=== PATIENT | female | born 1995 | race Caucasian/White ===

== ENCOUNTER 2021-02-24 06:54 | Day surgery (SDC) | payer MEDICAID ==
[2021-02-17 12:30] LABS: BASOPHILS % (AUTO) 0.4 % (0-1); EOSINOPHILS # (AUTO) 0.2 X10'3 (0-0.9); EOSINOPHILS % (AUTO) 3.2 % (0-6); LYMPHOCYTES # (AUTO) 2.1 X10'3 (1.1-4.8); LYMPHOCYTES % (AUTO) 27.6 % (21-51); MEAN CORPUSCULAR HEMOGLOBIN 29.7 PG (27.0-31.0); MEAN CORPUSCULAR HGB CONC 35.1 g/dL (33.0-36.5); MEAN CORPUSCULAR VOLUME 84.6 FL (78-98); MEAN PLATELET VOLUME 8.2 FL (7.4-10.4); MONOCYTES # (AUTO) 0.5 X10'3 (0-0.9); MONOCYTES % (AUTO) 6.5 % (2-12); NEUTROPHILS # (AUTO) 4.7 X10'3 (1.8-7.7); NEUTROPHILS % (AUTO) 62.3 % (42-75); PRE OP HEMATOCRIT 44.1 % (35.0-45.0); PRE OP HEMOGLOBIN 15.4 g/dL (12.0-16.0); PRE OP PLATELET COUNT 308 X10'3 (140-440); RED BLOOD COUNT 5.21 X10'6 (4.20-5.60); RED CELL DISTRIBUTION WIDTH 12.4 % (11.5-14.5)
[2021-02-17 12:44] LABS: PRE OP INR 1.1 INR; PRE OP PROTIME 11.4 SECONDS (9.0-12.0)
[2021-02-17 12:47] LABS: ALBUMIN 4.4 G/DL (3.4-5.0); ALBUMIN/GLOBULIN RATIO 1.3 (1.1-1.5); ALKALINE PHOSPHATASE 80 IU/L (46-116); BLOOD UREA NITROGEN 13 MG/DL (7-18); BUN/CREATININE RATIO 16.7 (6.6-38.0); CALCIUM 9.3 MG/DL (8.5-10.1); CHLORIDE 106 MMOL/L (99-107); CREATININE 0.78 MG/DL (0.40-0.90); PRE OP ALT 8 U/L (30-65); PRE OP ANION GAP 11 (8-16); PRE OP AST 15 U/L (10-37); PRE OP BILIRUB, TOTAL 0.9 MG/DL (0.0-1.0); PRE OP GLUCOSE 92 MG/DL (70-104); PRE OP POTASSIUM 3.8 MMOL/L (3.4-5.1); PRE OP SODIUM 141 MMOL/L (135-145); TOTAL CARBON DIOXIDE 24.3 MMOL/L (24-32); TOTAL PROTEIN 7.9 G/DL (6.4-8.2); eGFR 89 ML/MIN
[2021-02-17 12:51] LABS: CLARITY,URINE SLIGHTLY CLOUDY (Clear); COLOR,URINE YELLOW (Yellow); GLUCOSE, URINE NEGATIVE (Neg); KETONES,URINE NEGATIVE (Neg); LEUKOCYTE ESTERASE ,URINE NEGATIVE (Neg); NITRITES, URINE NEGATIVE (Neg); OCCULT BLOOD,URINE NEGATIVE (Neg); PH,URINE 5.5 (4.8-8.0); PROTEIN,URINE NEGATIVE (Neg); UROBILINOGEN,URINE 0.2 E.U/dL (0.2-1.0)
[2021-02-17 12:54] LABS: UA COLLECTION TYPE CLN CATCH MIDSTREAM
[2021-02-17 12:56] LABS: MUCUS STRANDS MANY /LPF (Neg); SQUAMOUS EPITHELIAL CELL,UR MANY /LPF (FEW)
[2021-02-17 12:57] LABS: TRANSITIONAL EPI CELLS,URINE FEW /HPF; WBC,URINE 0-4 /HPF (0-4)
[2021-02-17 12:58] LABS: BACTERIA,URINE 1+ /HPF (Neg); RBC,URINE NONE SEEN /HPF (0-2)
[2021-02-17 12:58] LABS: HCG SERUM QL NEGATIVE
[~2021-02-24] VITALS: Ht 172.7 cm; Wt 92.4 kg
[2021-02-24] VITALS (9 sets, daily range): BP systolic 113–144; BP diastolic 68–94
[~2021-02-24 06:54] MED LIST: ALBU8HFA INH; CHOL100046 PO; FLUT16SP IH; GABA300C PO; HYDR-3965 PO; HYDR50CA5 PO; INDO50CA96 PO; LORA10TA7 PO; ONDA4TAB12 PO; ceFOXitin 2GM-NS 100mL ADDvant 100 ML IV ONE; famotidine 20mg tablet PO ONE; ringers solution, lacted 1,000 ML IV SCH
[2021-02-24] MEDS ORDERED: proCHLORperazine 10 MG/2 ml inj IV PRN (08:05)
[2021-02-24] MEDS ORDERED: meperidine/PF 25mg/ml syringe IV PRN ×3 (08:05)
[2021-02-24] MEDS ORDERED: morphine 4 MG/ML inj SYRINge IV PRN (08:05)
[2021-02-24] MEDS ORDERED: ondansetron/PF 4mg/2ml inj IV PRN (08:05)
[2021-02-24] MEDS ORDERED: ringers solution, lacted 1,000 ML IV SCH (08:05)
[2021-02-24] MEDS ORDERED: morphine 2 MG/ML inj. syringe IV PRN (08:05)
[2021-02-24] MEDS ORDERED: BUPIVAcaine/PF 2.5 mg/ml (0.25%) 30ml vial ONE (08:18)
[2021-02-24] MEDS ORDERED: midazolam 1 mg/ML 2ml injection ONE ×2 (08:20→08:33)
[2021-02-24] MEDS ORDERED: dexamethasone sod phosphate 10mg/ml inj ONE (08:32)
[2021-02-24] MEDS ORDERED: sevoflurane 250ml liquid IH ONE (08:32)
[2021-02-24] MEDS ORDERED: rocuronium 10mg/ml inj IV ONE (08:33)
[2021-02-24] MEDS ORDERED: fentaNYL /PF 50mcg/ml 5ml ampule ONE (08:33)
[2021-02-24] MEDS ORDERED: propofol inj 20 ML IV ONE (08:33)
[2021-02-24] MEDS ORDERED: ondansetron/PF 4mg/2ml inj ONE (09:40)
[2021-02-24] MEDS ORDERED: neostigmine methylsulfate 1 MG/ML 10ml vial ONE (09:42)
[2021-02-24] MEDS ORDERED: glycopyrrolate 0.2mg/ml inj ONE (09:42)
--- NOTE | 2021-02-24 09:54 | NUR ---
Received from OR via TOM, accompanied by Anesthesiologist DR ARREOLA and report given by Anesthesiologist. PT DROWSY, ABDOMEN W/3 LAP SITES CDI. BLANKET WARMER APPLIED FOR TEMP OF 35.7. Addendum: 02/24/21 at 1010 by Karolina Peñaloza RN Amended: Links added.
--- NOTE | 2021-02-24 11:14 | NUR ---
PT UP AND ABLE TO AMBULATE SAFELY, PAIN TOLERABLE, D/C INSTRUCTIONS GIVEN AND GONE OVER W/PT WHO VERBALIZED UNDERSTANDING. PT D/CD TO HOME VIA W/C TO PRIVATE VEHICLE W/O INCIDENT. Addendum: 02/24/21 at 1133 by Karolina Peñaloza RN Amended: Links added.
== END 2021-02-24 11:14 | disposition home or self-care (01) ==
LOC: PAS 06:54 → EDBD 08:45 → PAS 11:14
PROVIDERS: ATTEND Obstetrics & Gynecology
DX: R10.2 Pelvic and perineal pain (principal); R19.09 Other intra-abdominal and pelvic swelling, mass and lump; N83.8 Other noninflammatory disorders of ovary, fallopian tube and broad ligament; J45.909 Unspecified asthma, uncomplicated; G43.909 Migraine, unspecified, not intractable, without status migrainosus; F32.9 Major depressive disorder, single episode, unspecified; F41.9 Anxiety disorder, unspecified; F25.9 Schizoaffective disorder, unspecified; F43.10 Post-traumatic stress disorder, unspecified; E66.9 Obesity, unspecified; Z68.31 Body mass index [BMI] 31.0-31.9, adult; Z86.14 Personal history of Methicillin resistant Staphylococcus aureus infection; Z20.822 Contact with and (suspected) exposure to COVID-19; Z79.899 Other long term (current) drug therapy; Z98.890 Other specified postprocedural states; Z87.891 Personal history of nicotine dependence
CPT/HCPCS: 36415; 58662; 80053; 81001; 82948; 84703; 85025; 85610; 85730; 86885; 86900; 86901; C1758; J0694; J2175; J2250; J2405; J2704; J2710; J3010; J3490; J7120; U0003; U0005; A4618; A7000; J1100

== ENCOUNTER 2022-12-29 09:37 | Outpatient (CLI) | payer MEDICAID ==
[2022-12-29] VITALS (21 sets, daily range): BP systolic 95–159; BP diastolic 33–106
[~2022-12-29 09:37] MED LIST changes: -ceFOXitin 2GM-NS 100mL ADDvant 100 ML IV ONE; -famotidine 20mg tablet PO ONE; -ringers solution, lacted 1,000 ML IV SCH
== END 2022-12-29 23:59 | disposition home or self-care (01) ==
LOC: RAD 09:37
PROVIDERS: ATTEND Physician Assistant Medical
DX: R42 Dizziness and giddiness (principal); R55 Syncope and collapse
CPT/HCPCS: 93660

== ENCOUNTER 2024-05-08 21:22 | Inpatient (IN) | payer MEDICAID ==
[~2024-05-08] VITALS: Ht 175.3 cm; Wt 118.4 kg
[~2024-05-08 21:22] MED LIST changes: +ONDA-243 PO; -ONDA4TAB12 PO
[2024-05-08 22:03] LABS: BASOPHILS % (AUTO) 0.5 % (0-1); EOSINOPHILS # (AUTO) 0.7 X10'3 (0-0.9); EOSINOPHILS % (AUTO) 9.7 % (0-6); HEMATOCRIT 41.9 % (35.0-45.0); HEMOGLOBIN 14.2 g/dl (12.0-16.0); LYMPHOCYTES # (AUTO) 2.5 X10'3 (1.1-4.8); LYMPHOCYTES % (AUTO) 36.2 % (21-51); MEAN CORPUSCULAR HEMOGLOBIN 28.8 PG (27.0-31.0); MEAN CORPUSCULAR HGB CONC 33.9 g/dL (33.0-36.5); MEAN CORPUSCULAR VOLUME 84.9 FL (78-98); MEAN PLATELET VOLUME 8.6 FL (7.4-10.4); MONOCYTES # (AUTO) 0.6 X10'3 (0-0.9); MONOCYTES % (AUTO) 8.5 % (2-12); NEUTROPHILS # (AUTO) 3.1 X10'3 (1.8-7.7); NEUTROPHILS % (AUTO) 45.1 % (42-75); PLATELET COUNT 228 X10'3 (140-440); RED BLOOD COUNT 4.93 X10'6 (4.20-5.60); RED CELL DISTRIBUTION WIDTH 14.1 % (11.5-14.5); WHITE BLOOD COUNT 6.9 X10'3 (4.5-11.0)
[2024-05-08] MEDS ORDERED: TRAZ-251 PO (22:23)
[2024-05-08] MEDS ORDERED: MECL-226 PO (22:23)
[2024-05-08] MEDS ORDERED: CETI10TA14 PO (22:23)
[2024-05-08] MEDS ORDERED: UBRO50TA (22:23)
[2024-05-08] MEDS ORDERED: SERT-432 PO (22:23)
[2024-05-08] MEDS ORDERED: PROG100C11 PO (22:23)
[2024-05-08] MEDS ORDERED: GABA300T28 (22:23)
[2024-05-08] MEDS ORDERED: ROSU40TA71 (22:23)
[2024-05-08] MEDS ORDERED: CLON0.5T4 (22:23)
[2024-05-08] MEDS ORDERED: PROP10TA10 PO (22:23)
[2024-05-08] MEDS ORDERED: RIZA10TA28 (22:23)
[2024-05-08] MEDS ORDERED: LEVO15TA6 (22:23)
[2024-05-08] MEDS ORDERED: TIZA4CAP PO (22:23)
[2024-05-08] MEDS ORDERED: ESTR1TAB28 PO (22:23)
[2024-05-08] MEDS ORDERED: PREG100C PO (22:23)
[2024-05-08] MEDS ORDERED: MEMA10TA22 PO (22:23)
[2024-05-08 22:24] LABS: ALBUMIN 3.9 G/DL (3.4-5.0); ANION GAP 10 (8-16); BLOOD UREA NITROGEN 14 MG/DL (7-18); BUN/CREATININE RATIO 13.1 (10.0-20.0); CALCIUM 9.3 MG/DL (8.5-10.1); CHLORIDE 107 MMOL/L (99-107); CREATININE 1.07 MG/DL (0.40-0.90); ETHANOL < 10 MG/DL (<10); GLUCOSE 103 MG/DL (70-104); POTASSIUM 3.7 MMOL/L (3.5-5.1); SODIUM 140 MMOL/L (135-145); THYROID STIMULATING HORMONE 1.46 ulU/ml (0.34-4.50); TOTAL CARBON DIOXIDE 23.4 MMOL/L (24-32); eCRCL 80 ML/MIN; eGFR 60 ML/MIN
[2024-05-08 23:09] LABS: BILIRUBIN,URINE NEGATIVE (Neg); CLARITY,URINE SLIGHTLY CLOUDY (Clear); COLOR,URINE YELLOW (Yellow); GLUCOSE, URINE NEGATIVE (Neg); KETONES,URINE NEGATIVE (Neg); LEUKOCYTE ESTERASE ,URINE SMALL (Neg); NITRITES, URINE NEGATIVE (Neg); OCCULT BLOOD,URINE NEGATIVE (Neg); PROTEIN,URINE NEGATIVE (Neg); URINE HCG NEGATIVE (NEG); UROBILINOGEN,URINE 0.2 E.U/dL (0.2-1.0)
[2024-05-08 23:11] LABS: UA COLLECTION TYPE CLN CATCH MIDSTREAM
[2024-05-08 23:14] LABS: MUCUS STRANDS MANY /LPF (Neg); SQUAMOUS EPITHELIAL CELL,UR MANY /LPF (FEW); TRANSITIONAL EPI CELLS,URINE FEW /HPF
[2024-05-08 23:15] LABS: BACTERIA,URINE 3+ /HPF (Neg); RBC,URINE 0-2 /HPF (0-2)
[2024-05-08 23:40] LABS: URINE AMPHETAMINE SCREEN NEGATIVE (Neg); URINE BARBITUATE SCREEN NEGATIVE (Neg); URINE BENZODIAZEPINES SCREEN NEGATIVE (Neg); URINE CANNABINOID SCREEN POSITIVE (Neg); URINE COCAINE SCREEN NEGATIVE (Neg); URINE METHADONE SCREEN NEGATIVE (Neg); URINE OPIATE SCREEN NEGATIVE (Neg); URINE PHENCYCLIDINE SCREEN NEGATIVE (Neg)
[2024-05-08] MEDS: ondansetron 4mg rapidly disintigrating tab PO SCH (23:58)
[2024-05-09] MEDS ORDERED: meclizine 12.5mg tablet PO PRN (00:30)
[2024-05-09] MEDS: sertraline 25mg tablet PO SCH ×2 (08:00→21:50)
[2024-05-09] MEDS: LEVOMEFOLATE CALCIUM PO SCH (08:00)
[2024-05-09] MEDS: propranolol 10mg tablet PO SCH (08:10)
[2024-05-09] MEDS: memantine 5mg tablet PO SCH (08:10)
[2024-05-09] MEDS: pregabalin 25mg capsule PO SCH (08:10)
[2024-05-09] MEDS: gabapentin 300mg capsule PO SCH (08:11)
[2024-05-09] MEDS: nicotine 14mg patch - 24hr TD SCH (12:06)
[2024-05-09] MEDS: clonazePAM 0.5mg tablet PO SCH (12:06)
[2024-05-09] MEDS: estradiol 1mg tablet PO SCH (20:24)
[2024-05-09] MEDS: traZODone 50mg tablet PO SCH (20:24)
[2024-05-09] MEDS: progesterone, micronized 100mg capsule PO SCH (20:25)
[2024-05-09] MEDS: ketorolac trometh 30MG/ML vial 30 MG/ML VIAL IV ONE (20:26)
[2024-05-10] MEDS: HYDROcodone/acetaminophen 5mg/325mg tablet PO ONE (04:24)
[2024-05-10 10:38] VITALS: BP 138/94; PULSE 58; RESP 16; TEMP 97.7; O2SAT 99
[2024-05-10] MEDS ORDERED: mag hydrox/Alum hydrox/simeth 30ml oral suspension PO PRN (11:05)
[2024-05-10] MEDS ORDERED: acetaminophen 325mg tablet PO PRN (11:05)
[2024-05-10] MEDS ORDERED: NICOTINE POLACRILEX 2 MG LOZENGE BC PRN (11:05)
[2024-05-10] MEDS ORDERED: loperamide 2mg capsule PO PRN (11:05)
[2024-05-10 11:30] VITALS: RESP 16; O2SAT 99
[2024-05-10] MEDS ORDERED: lurasidone 20mg tablet PO SCH (17:00)
[2024-05-10] MEDS: polyethylene glycol 3350 17gm powd pack PO PRN (17:09)
[2024-05-10] MEDS ORDERED: ROSU40TA PO (17:58)
[2024-05-10] MEDS ORDERED: TOPI50TA PO (17:58)
[2024-05-10 19:00] VITALS: RESP 16; O2SAT 96
[2024-05-10 20:00] VITALS: BP 115/73; PULSE 73; RESP 16; TEMP 97.3; O2SAT 96
[2024-05-10] MEDS: topiramate 25mg tablet PO SCH (20:20)
[2024-05-10] MEDS: sertraline 25mg tablet PO SCH (20:22)
[2024-05-10] MEDS ORDERED: sertraline 50mg tablet PO SCH (21:00)
[2024-05-11 07:30] VITALS: BP 139/101; PULSE 80; RESP 16; TEMP 97.7; O2SAT 96
[2024-05-11] MEDS: nicotine 21mg patch - 24 hr TD SCH (07:48)
[2024-05-11] MEDS: buPROPion SR 100mg tab PO SCH (07:49)
[2024-05-11] MEDS: ziprasidone 20mg capsule PO SCH (07:50)
[2024-05-11 08:38] LABS: CHOL/HDL RATIO 2.2 (0.00-4.99); CHOLESTEROL 145 MG/DL (0-200); HDL CHOLESTEROL 67 MG/DL (35-60); LDL CHOLESTEROL 64 MG/DL (50-100); TRIGLYCERIDES 89 MG/DL (20-135)
[2024-05-11] MEDS ORDERED: propranolol 10mg tablet PO PRN (14:45)
[2024-05-11 19:34] VITALS: RESP 16; O2SAT 99
[2024-05-11 20:00] VITALS: BP 122/85; PULSE 71; RESP 16; TEMP 98.1; O2SAT 99
[2024-05-11] MEDS: propranolol 10mg tablet PO SCH (22:01)
[2024-05-12 07:15] VITALS: BP 120/76; PULSE 71; RESP 18; TEMP 97.7; O2SAT 95
[2024-05-12 07:16] LABS: HBSAG SCREEN Negative (Negative); HEP B CORE AB, IGM Negative (Negative); HEP B CORE AB, TOT Negative (Negative)
[2024-05-12] MEDS: ziprasidone 20mg capsule PO SCH (07:24)
[2024-05-12] MEDS: atorvastatin 20mg tablet PO SCH (07:24)
[2024-05-12 07:30] VITALS: RESP 16; O2SAT 95
[2024-05-12 12:17] LABS: HEPATITIS C VIRUS ANTIBODY Non Reactive (Non Reactive)
[2024-05-12 19:00] VITALS: RESP 16; O2SAT 97
[2024-05-12 20:10] VITALS: BP 95/57; PULSE 83; RESP 16; TEMP 97.8; O2SAT 97
[2024-05-13 07:30] VITALS: BP 125/81; PULSE 80; RESP 12; TEMP 97.8; O2SAT 95
[2024-05-13] MEDS: acetaminophen 325mg tablet PO PRN (09:19)
[2024-05-13] MEDS: diphenhydrAMINE 50 mg/ml inj IM STA (13:28)
[2024-05-13 13:50] VITALS: BP 121/70; PULSE 76; RESP 14; TEMP 97.9; O2SAT 99
[2024-05-13 19:00] VITALS: BP 110/80; PULSE 72; RESP 18; TEMP 98.3; O2SAT 97
[2024-05-13] MEDS: ziprasidone 20mg capsule PO SCH (21:42)
[2024-05-14] MEDS: HYDROcodone/acetaminophen 5mg/325mg tablet PO ONE (05:53)
[2024-05-14 08:00] VITALS: BP 118/71; PULSE 78; RESP 18; TEMP 97.9; O2SAT 95
[2024-05-14 19:00] VITALS: BP 125/78; PULSE 74; RESP 16; TEMP 97.1; O2SAT 99
[2024-05-15 08:00] VITALS: BP 120/62; PULSE 86; RESP 16; TEMP 98.8; O2SAT 98
[2024-05-15] MEDS: HYDROcodone/acetaminophen 10/325mg tab PO PRN (09:21)
[2024-05-15] MEDS: ondansetron 4mg rapidly disintigrating tab PO PRN (09:26)
[2024-05-15 19:00] VITALS: RESP 18; O2SAT 100
[2024-05-15 20:30] VITALS: BP 136/83; PULSE 68; RESP 18; TEMP 97.2; O2SAT 100
[2024-05-16] MEDS: traZODone 50mg tablet PO ONE (00:09)
[2024-05-16 08:00] VITALS: BP 126/78; PULSE 98; RESP 16; TEMP 98; O2SAT 97
[2024-05-16] MEDS: aspirin 81mg, enteric-coated 1 TAB TABLET.DR PO SCH (08:33)
[2024-05-16] MEDS: magnesium hydroxide 30ml (MOM) UD suspension PO PRN (15:02)
[2024-05-16 19:00] VITALS: BP 98/58; PULSE 78; RESP 14; RESP 16; TEMP 97.9; O2SAT 96
[2024-05-17 07:56] VITALS: BP 106/49; PULSE 84; RESP 16; TEMP 98.9; O2SAT 98
[2024-05-17 15:30] VITALS: RESP 16; O2SAT 98
[2024-05-17] MEDS ORDERED: NICO-687 TD (17:47)
[2024-05-17] MEDS ORDERED: NICO-907 BC (17:47)
[2024-05-17] MEDS ORDERED: HYDR-3972 PO (17:47)
[2024-05-17] MEDS ORDERED: BUPR100T15 PO (18:30)
[2024-05-17] MEDS ORDERED: ZIPR20CA12 PO (18:30)
[2024-05-17 19:00] VITALS: RESP 18; O2SAT 96
[2024-05-17 19:54] VITALS: BP 120/79; PULSE 76; RESP 20; TEMP 97.2; O2SAT 98
== END 2024-05-17 20:05 | disposition home or self-care (01) | DRG 750 ==
LOC: ER 21:23 → ADULT MH 05-09 17:00
PROVIDERS: ADMIT Psychiatry & Neurology Psychiatry; ATTEND Psychiatry & Neurology Psychiatry
DX: F25.0 Schizoaffective disorder, bipolar type (principal); N17.0 Acute kidney failure with tubular necrosis; R45.851 Suicidal ideations; E66.01 Morbid (severe) obesity due to excess calories; Z68.38 Body mass index [BMI] 38.0-38.9, adult; Z20.822 Contact with and (suspected) exposure to COVID-19; F43.10 Post-traumatic stress disorder, unspecified; G90.A Postural orthostatic tachycardia syndrome [POTS]; M79.7 Fibromyalgia; Q65.89 Other specified congenital deformities of hip; Z79.899 Other long term (current) drug therapy; Z81.8 Family history of other mental and behavioral disorders; Z82.3 Family history of stroke; Z90.710 Acquired absence of both cervix and uterus
CPT/HCPCS: 36415; 80048; 80061; 80305; 80320; 81001; 81025; 84443; 85025; 86704; 86705; 86803; 87081; 87340; 87522; 87811; 93925; 96374; 99285; A6250; J1200; J1885

== ENCOUNTER 2024-10-06 16:41 | Emergency (ER) | payer MEDICAID ==
[~2024-10-06] VITALS: Ht 175.3 cm; Wt 115.9 kg
[~2024-10-06 16:41] MED LIST changes: -ALBU8HFA INH; +BUPR100T15 PO; -CHOL100046 PO; +ESTR1TAB28 PO; -FLUT16SP IH; -HYDR-3965 PO; +HYDR-3972 PO; -HYDR50CA5 PO; -INDO50CA96 PO; +LEVO15TA6; -LORA10TA7 PO; +MECL-226 PO; +MEMA10TA22 PO; +NICO-687 TD; +NICO-907 BC; +PREG100C PO; +PROG100C11 PO; +PROP10TA10 PO; +ROSU40TA PO; +SERT-432 PO; +TOPI50TA PO; +TRAZ-251 PO; +ZIPR20CA12 PO
[2024-10-06 16:45] VITALS: TEMP 99.8
[2024-10-06 17:33] LABS: WHITE BLOOD COUNT 6.4 X10'3 (4.5-11.0)
[2024-10-06 17:35] LABS: BASOPHILS % (AUTO) 0.4 % (0-1); EOSINOPHILS % (AUTO) 0.3 % (0-6); HEMATOCRIT 40.1 % (35.0-45.0); HEMOGLOBIN 13.7 g/dl (12.0-16.0); LYMPHOCYTES # (AUTO) 1.6 X10'3 (1.1-4.8); LYMPHOCYTES % (AUTO) 24.2 % (21-51); MEAN CORPUSCULAR HGB CONC 34.1 g/dL (33.0-36.5); MEAN CORPUSCULAR VOLUME 85.1 FL (78-98); MEAN PLATELET VOLUME 8.3 FL (7.4-10.4); MONOCYTES # (AUTO) 0.4 X10'3 (0-0.9); MONOCYTES % (AUTO) 6.3 % (2-12); NEUTROPHILS # (AUTO) 4.4 X10'3 (1.8-7.7); NEUTROPHILS % (AUTO) 68.8 % (42-75); PLATELET COUNT 286 X10'3 (140-440); RED BLOOD COUNT 4.72 X10'6 (4.20-5.60); RED CELL DISTRIBUTION WIDTH 13.4 % (11.5-14.5)
[2024-10-06 18:13] LABS: ALANINE AMINOTRANSFERASE 18 U/L (12-78); ALBUMIN 4.5 G/DL (3.4-5.0); ALBUMIN/GLOBULIN RATIO 1.3 (1.1-1.5); ALKALINE PHOSPHATASE 114 IU/L (46-116); ANION GAP 14 (8-16); ASPARTATE AMINO TRANSFERASE 7 U/L (10-37); BILIRUBIN,TOTAL 0.9 MG/DL (0.1-1.0); BLOOD UREA NITROGEN 10 MG/DL (7-18); BUN/CREATININE RATIO 10.4 (10.0-20.0); CALCIUM 10.2 MG/DL (8.5-10.1); CHLORIDE 106 MMOL/L (99-107); CREATININE 0.96 MG/DL (0.40-0.90); GLUCOSE 89 MG/DL (70-104); LIPASE 51 U/L (16-77); POTASSIUM 3.4 MMOL/L (3.5-5.1); SODIUM 143 MMOL/L (135-145); TOTAL CARBON DIOXIDE 23.3 MMOL/L (24-32); TOTAL PROTEIN 8.1 G/DL (6.4-8.2); eCRCL 89 ML/MIN; eGFR 68 ML/MIN
[2024-10-06] MEDS ORDERED: ondansetron/PF 4mg/2ml inj IV ONE ×2 (20:00→20:05)
[2024-10-06] MEDS ORDERED: diphenhydrAMINE 50 mg/ml inj IM ONE (20:50)
[2024-10-06] MEDS: metoclopramide 5 mg/ml inj IV ONE (21:01)
[2024-10-06] MEDS: normal saline 1000ML IV soln IVB ONE (21:02)
[2024-10-06] MEDS: diphenhydrAMINE 50 mg/ml inj IV ONE (21:04)
[2024-10-06 21:11] LABS: URINE HCG NEGATIVE (NEG)
[2024-10-06 21:12] LABS: BILIRUBIN,URINE NEGATIVE (Neg); CLARITY,URINE CLOUDY (Clear); COLOR,URINE YELLOW (Yellow); GLUCOSE, URINE NEGATIVE (Neg); KETONES,URINE 40 mg/dl (Neg); LEUKOCYTE ESTERASE ,URINE TRACE (Neg); NITRITES, URINE NEGATIVE (Neg); OCCULT BLOOD,URINE NEGATIVE (Neg); PH,URINE 8.5 (4.8-8.0); PROTEIN,URINE TRACE mg/dl (Neg)
[2024-10-06 21:19] LABS: UA COLLECTION TYPE CLN CATCH MIDSTREAM
[2024-10-06 21:30] LABS: BACTERIA,URINE 4+ /HPF (Neg); RBC,URINE NONE SEEN /HPF (0-2); WBC,URINE 0-4 /HPF (0-4)
[2024-10-06 21:31] LABS: SQUAMOUS EPITHELIAL CELL,UR MANY /LPF (FEW)
[2024-10-06] MEDS ORDERED: ONDA-245 PO (22:40)
[2024-10-06] MEDS ORDERED: POTA-207 PO (22:42)
[2024-10-06 22:45] VITALS: BP 136/83; PULSE 74; RESP 15; O2SAT 97
== END 2024-10-06 22:56 | disposition home or self-care (01) ==
LOC: ER 16:41
DX: R11.2 Nausea with vomiting, unspecified (principal); F32.A Depression, unspecified; F12.90 Cannabis use, unspecified, uncomplicated; Z91.018 Allergy to other foods; Z91.048 Other nonmedicinal substance allergy status; Z79.899 Other long term (current) drug therapy; Z86.73 Personal history of transient ischemic attack (TIA), and cerebral infarction without residual deficits
CPT/HCPCS: 36415; 80053; 81001; 81025; 83690; 85025; 96361; 96374; 96375; 99284; J1200; J2765; J7030; A6410

== ENCOUNTER 2024-11-23 17:01 | Emergency (ER) | payer MEDICAID ==
[~2024-11-23] VITALS: Ht 175.3 cm; Wt 85.6 kg
[~2024-11-23 17:01] MED LIST changes: +ONDA-245 PO
[2024-11-23 17:33] LABS: BASOPHILS % (AUTO) 0.4 % (0-1); EOSINOPHILS # (AUTO) 0.2 X10'3 (0-0.9); EOSINOPHILS % (AUTO) 2.7 % (0-6); HEMATOCRIT 39.7 % (35.0-45.0); HEMOGLOBIN 13.5 g/dl (12.0-16.0); LYMPHOCYTES # (AUTO) 1.9 X10'3 (1.1-4.8); LYMPHOCYTES % (AUTO) 32.2 % (21-51); MEAN CORPUSCULAR HEMOGLOBIN 28.3 PG (27.0-31.0); MEAN CORPUSCULAR VOLUME 83.2 FL (78-98); MEAN PLATELET VOLUME 8.2 FL (7.4-10.4); MONOCYTES # (AUTO) 0.4 X10'3 (0-0.9); MONOCYTES % (AUTO) 7.5 % (2-12); NEUTROPHILS # (AUTO) 3.4 X10'3 (1.8-7.7); NEUTROPHILS % (AUTO) 57.2 % (42-75); PLATELET COUNT 249 X10'3 (140-440); RED BLOOD COUNT 4.77 X10'6 (4.20-5.60); RED CELL DISTRIBUTION WIDTH 13.9 % (11.5-14.5); WHITE BLOOD COUNT 5.9 X10'3 (4.5-11.0)
[2024-11-23 18:28] LABS: ALBUMIN 4.2 G/DL (3.4-5.0); ANION GAP 11 (8-16); BLOOD UREA NITROGEN 14 MG/DL (7-18); BUN/CREATININE RATIO 14.4 (10.0-20.0); CALCIUM 9.5 MG/DL (8.5-10.1); CHLORIDE 108 MMOL/L (99-107); CREATININE 0.97 MG/DL (0.40-0.90); GLUCOSE 94 MG/DL (70-104); POTASSIUM 3.9 MMOL/L (3.5-5.1); SODIUM 143 MMOL/L (135-145); eCRCL 88 ML/MIN; eGFR 67 ML/MIN
[2024-11-23 18:44] LABS: URINE HCG NEGATIVE (NEG)
[2024-11-23 18:46] LABS: CLARITY,URINE SLIGHTLY CLOUDY (Clear); COLOR,URINE ORANGE (Yellow); UA COLLECTION TYPE CLN CATCH MIDSTREAM
[2024-11-23 18:53] LABS: BACTERIA,URINE 1+ /HPF (Neg); RBC,URINE 0-2 /HPF (0-2); SQUAMOUS EPITHELIAL CELL,UR MODERATE /LPF (FEW)
[2024-11-23 18:54] LABS: MUCUS STRANDS FEW /LPF (Neg); TRANSITIONAL EPI CELLS,URINE FEW /HPF
[2024-11-23 18:56] LABS: THYROID STIMULATING HORMONE 1.11 ulU/ml (0.34-4.50)
[2024-11-23 18:57] LABS: ETHANOL < 10 MG/DL (<10)
[2024-11-23 19:01] LABS: URINE AMPHETAMINE SCREEN NEGATIVE (Neg); URINE BARBITUATE SCREEN NEGATIVE (Neg); URINE BENZODIAZEPINES SCREEN NEGATIVE (Neg); URINE CANNABINOID SCREEN POSITIVE (Neg); URINE COCAINE SCREEN NEGATIVE (Neg); URINE METHADONE SCREEN NEGATIVE (Neg); URINE OPIATE SCREEN NEGATIVE (Neg); URINE PHENCYCLIDINE SCREEN NEGATIVE (Neg)
[2024-11-23] MEDS: clonazePAM 1mg tablet PO ONE (19:17)
[2024-11-23] MEDS ORDERED: CLON0.5T4 PO (20:41)
[2024-11-23] MEDS ORDERED: BUPR-561 PO (20:41)
[2024-11-23] MEDS ORDERED: CETI10TA14 PO (20:41)
[2024-11-23] MEDS ORDERED: BUDE10.2 IH (20:41)
[2024-11-23] MEDS ORDERED: PHEN-888 PO (20:41)
[2024-11-23] MEDS ORDERED: UBRO50TA PO (20:41)
[2024-11-23] MEDS ORDERED: TIZA-205 PO (20:41)
[2024-11-23] MEDS ORDERED: TROS20TA4 PO (20:41)
[2024-11-23] MEDS ORDERED: RIZA10TA28 PO (20:41)
[2024-11-23] MEDS ORDERED: LIDO700A47 TD (20:41)
[2024-11-23] MEDS ORDERED: ROSU20TA98 PO (20:41)
[2024-11-23] MEDS ORDERED: AZEL137S4 BOTHNARES (20:41)
[2024-11-23] MEDS ORDERED: ZIPR20CA12 PO (20:51)
[2024-11-23] MEDS ORDERED: CHOL500050 PO (20:51)
[2024-11-23] MEDS ORDERED: GABA300C PO (20:51)
[2024-11-23] MEDS ORDERED: MEMA10TA22 PO (20:51)
[2024-11-23] MEDS ORDERED: phenazopyridine 100mg tablet PO PRN (22:10)
[2024-11-23] MEDS ORDERED: meclizine 12.5mg tablet PO PRN (22:10)
[2024-11-23] MEDS ORDERED: traZODone 50mg tablet PO PRN (22:10)
[2024-11-23] MEDS ORDERED: ondansetron 4mg rapidly disintigrating tab PO PRN (22:10)
[2024-11-23] MEDS ORDERED: tizanidine 4mg tablet PO PRN (22:10)
[2024-11-23] MEDS: albuterol 2.5 MG/3 ML nebule NEB SCH (22:10)
[2024-11-23] MEDS ORDERED: UBROGEPANT 50 MG PO PRN (22:15)
[2024-11-23 22:20] VITALS: PULSE 86; RESP 16; O2SAT 93
[2024-11-23] MEDS: progesterone, micronized 100mg capsule PO SCH (22:23)
[2024-11-23] MEDS: memantine 5mg tablet PO SCH (23:41)
[2024-11-23] MEDS: gabapentin 300mg capsule PO SCH (23:41)
[2024-11-23] MEDS: clonazePAM 0.5mg tablet PO SCH (23:41)
[2024-11-23] MEDS: propranolol 10mg tablet PO SCH (23:41)
[2024-11-23] MEDS: ziprasidone 20mg capsule PO SCH (23:42)
[2024-11-23] MEDS: estradiol 1mg tablet PO SCH (23:43)
[2024-11-24] MEDS: RIZATRIPTAN BENZOATE 10 MG PO SCH (08:00)
[2024-11-24] MEDS: Trospium Chloride 20 MG TABLET PO SCH (08:00)
[2024-11-24] MEDS: LEVOMEFOLATE CALCIUM 15 MG PO SCH (08:00)
[2024-11-24 08:23] VITALS: PULSE 79; RESP 14; O2SAT 96
[2024-11-24] MEDS: albuterol 2.5 MG/3 ML nebule NEB SCH (08:23)
[2024-11-24] MEDS: budesonide 0.5mg/2ml UD nebule IH SCH (08:23)
[2024-11-24 08:33] VITALS: PULSE 77; RESP 12
[2024-11-24] MEDS: azelastine Nasal Spray bottle NS SCH (08:59)
[2024-11-24] MEDS: cholecalciferol (vitamin D3) 1,000 unit (25mcg) tablet PO SCH (09:08)
[2024-11-24] MEDS: atorvastatin 20mg tablet PO SCH (09:10)
[2024-11-24] MEDS: cetirizine 10mg tablet PO SCH (09:10)
[2024-11-24] MEDS: BUPROPION HCL 150MG XL 24 HR 150 MG TAB PO SCH (09:11)
[2024-11-24 13:49] LABS: BILIRUBIN,URINE NEGATIVE (Neg); CLARITY,URINE CLEAR (Clear); COLOR,URINE YELLOW (Yellow); GLUCOSE, URINE NEGATIVE (Neg); KETONES,URINE NEGATIVE (Neg); LEUKOCYTE ESTERASE ,URINE NEGATIVE (Neg); NITRITES, URINE NEGATIVE (Neg); OCCULT BLOOD,URINE NEGATIVE (Neg); PROTEIN,URINE NEGATIVE (Neg); UROBILINOGEN,URINE 0.2 E.U/dL (0.2-1.0)
[2024-11-24 13:53] LABS: UA COLLECTION TYPE CLN CATCH MIDSTREAM
[2024-11-24] MEDS: nicotine 21mg patch - 24 hr TD SCH (14:39)
[2024-11-24] MEDS: LIDOcaine 5% patch TP PRN (14:39)
[2024-11-24] MEDS: NICOTINE POLACRILEX 2 MG LOZENGE BC PRN (14:40)
[2024-11-24] MEDS ORDERED: RIZATRIPTAN 10MG TABLET PO PRN (19:00)
[2024-11-24 20:10] VITALS: PULSE 76; RESP 16; O2SAT 98
[2024-11-24 20:27] VITALS: PULSE 79; RESP 12
[2024-11-24] MEDS: gabapentin 300mg capsule PO SCH (20:29)
[2024-11-25] MEDS: ketorolac trometh 30MG/ML vial 30 MG/ML VIAL IM ONE (07:46)
[2024-11-25 12:10] VITALS: BP 140/96; PULSE 82; RESP 15; TEMP 98.2; O2SAT 98
== END 2024-11-25 12:58 ==
LOC: ER 17:02
DX: R45.851 Suicidal ideations (principal); F25.9 Schizoaffective disorder, unspecified; F32.A Depression, unspecified; Z91.018 Allergy to other foods; Z91.048 Other nonmedicinal substance allergy status; Z79.899 Other long term (current) drug therapy; Z86.73 Personal history of transient ischemic attack (TIA), and cerebral infarction without residual deficits; Z20.822 Contact with and (suspected) exposure to COVID-19
CPT/HCPCS: 36415; 80048; 80305; 80320; 81001; 81003; 81025; 84443; 85025; 87088; 87811; 94760; 96372; 99285; C2617; J1885